=== PATIENT | male | born 1960 | race Hispanic/Latino ===

== ENCOUNTER 2018-04-17 18:53 | Emergency (ER) | payer OTHER ==
[2018-04-17 19:25] LABS: #Basophils 0.1 thou/uL (0.0-0.2); #Eosinphils 0.3 thou/uL (0.0-0.7); #Lymphocytes 0.9 thou/uL (1.20-3.40); #Monocytes 0.5 thou/uL (0.11-0.59); #Neutrophils 6.8 thou/uL (1.40-6.50); %Basophils 0.6 % (0.0-1.0); %Eosinophils 3.1 % (0.0-10.0); %Lymphocytes 10.8 % (21.0-51.0); %Monocytes 6.2 % (0.0-10.0); %Neutrophils 79.3 % (42.0-75.0); Hemoglobin 12.1 g/dL (14.0-18.0); Mean Corpuscular Hemoglobin 32.1 pg (27.0-31.0); Mean Corpuscular Volume 91.6 fL (78.0-98.0); Platelet Count 192 thou/uL (130-400); RBC Distribution Width 12.5 % (11.5-14.5); Red Blood Cell (RBC) Count 3.76 mill/uL (4.70-6.10); White Blood Cell (WBC) Count 8.6 thou/uL (4.8-10.8)
[2018-04-17 19:41] LABS: Troponin I Less than 0.010 ng/mL (< 0.028)
[2018-04-17 19:46] LABS: ALT (SGPT) 18 U/L (8-55); AST (SGOT) 23 U/L (5-34); Albumin 2.9 g/dL (3.5-5.0); Alkaline Phosphatase 94 U/L (40-150); Anion Gap 14 mmol/L (10-20); BUN (Urea Nitrogen) 20 mg/dL (8.4-25.7); Bilirubin, Total 0.7 mg/dL (0.2-1.2); CK (CPK) 315 U/L (30-200); Calc. Creatinine Clearance 0 mL/min (70-130); Calcium 8.4 mg/dL (7.8-10.44); Carbon Dioxide 19 mmol/L (22-29); Chloride 108 mmol/L (98-107); Estimated GFR-MDRD 62; Globulin 3.2 g/dL (2.4-3.5); Glucose 95 mg/dL (70-105); Lipase 5 U/L (8-78); Protein, Total 6.1 g/dL (6.0-8.3); Sodium 137 mmol/L (136-145)
[2018-04-17 20:34] LABS: Bilirubin Negative (Negative); Blood, Urine Moderate (Negative); Clarity CLEAR (Clear); Glucose, Urine (Dipstick) 100 mg/dL (Negative); Leukocyte Negative (Negative); Nitrite Negative (Negative); Protein, Urine (Dipstick) > or equal to 300 mg/dL (Neg-Trace); Specific Gravity, Urine 1.014 (1.002-1.036); Urobilinogen 0.2 mg/dL (0.2-1.0)
[2018-04-17 20:36] LABS: Bacteria/HPF None Seen HPF (None Seen); Hyaline Casts/LPF 4-6 HYALINE CAST LPF (0-3 Hyaline); Pathc Cast-AUWi Flag 1.01 (0-2.49); RBC/HPF 21-50 HPF (0-3); Squamous Epithelial 0-3 HPF (0-3); WBC/HPF 0-3 HPF (0-3)
[2018-04-18] MEDS ORDERED: Ketorolac Tromethamine 30 MG/ML VIAL ONE (01:36)
[2018-04-18] MEDS ORDERED: Metoprolol Tartrate 5 MG/5 ML VIAL ONE ×2 (02:27→07:03)
[2018-04-18] MEDS ORDERED: Piperacillin/Tazobactam 3.375 GM in Sodium Chloride 0.9% 100 ML IVPB SCH (03:30)
--- NOTE | 2018-04-18 08:29 | CT ---
CT OF THE ABDOMEN AND PELVIS NONCONTRAST: Date: 04/17/18 INDICATION: Abdominal pain, chest pain. No prior imaging for comparison. FINDINGS: There is marked abnormal thickening and hyperdensity of the gallbladder wall with multifocal calcific ation. Pericholecystic fluid is present. Limited evaluation of the bowel due to absence of IV or ente baljit contrast, although the adjacent duodenum is thickened, which could relate to reactive duodenitis versus a primary enteric inflammatory process. There is no evidence of radiopaque urolithiasis. Visua lized lung bases are clear. No pneumoperitoneum. Diffuse vascular disease present. There is calcifica tion of the vas deferens, which indicates diabetes. Correlate clinically. There is a moderate to larg e right inguinal hernia containing nonobstructed, unopacified bowel. Diffuse soft tissue edema presen t. There is prominent degenerative change of the osseous structures. IMPRESSION: 1. Markedly abnormal gallbladder with pericholecystic fluid. 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 CT fi ndings are limited by noncontrast imaging, although suggest an acute cholecystitis. There is also thi ckening of the adjacent, traversing duodenum. Recommend gallbladder ultrasound to further characteriz e. 2. Moderate to large right inguinal hernia containing nonobstructed, unopacified bowel. Telephone call findings placed to ER physician, Destin Hillman, at [id number] hours, 04/18/18. CODE CR. POS: [id number]
--- NOTE | 2018-04-18 08:36 | ULT ---
GALLBLADDER ULTRASOUND: Date: 04/18/18 INDICATION: Upper abdominal pain/chest pain. FINDINGS: There is evidence of cholelithiasis, as well as a thickened gallbladder wall, greater than 6.0 mm. Th ere is also increased echogenicity at the gallbladder wall to indicate associated gallbladder wall ca lcification. Common duct is dilated at 7.0 mm. Kaur's sign is reported as positive by the sonograph er. No focal hepatic lesion is seen. There is evidence of gallbladder wall edema/pericholecystic alex a. IMPRESSION: 1. Evidence of cholelithiasis and acute cholecystitis. 2. Biliary ductal dilatation also present. Recommend surgical consultation. POS: JOCY
== END 2018-04-18 08:54 | disposition short-term general hospital (02) ==
LOC: ERS 18:53 → EEVIPCON 18:53 → ERS 04-18 08:54
DX: K81.0 Acute cholecystitis (principal); E11.9 Type 2 diabetes mellitus without complications; I10 Essential (primary) hypertension
CPT/HCPCS: 36415; 74176; 76705; 80053; 81003; 81015; 82553; 83690; 84484; 85025; 93005; 96361; 96365; 96375; 96376; J1885; J2543; J7050